=== PATIENT | female | born 2000 | race African-American/Black ===

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

== ENCOUNTER 2019-02-25 21:18 | Emergency (ER) | payer OTHER ==
[~2019-02-25] VITALS: Ht 167.6 cm; Wt 59.7 kg
[2019-02-25 21:21] VITALS: BP 102/58
== END 2019-02-25 22:13 | disposition home or self-care (01) ==
LOC: ED 22:01
DX: L03.90 Cellulitis, unspecified (principal); G43.909 Migraine, unspecified, not intractable, without status migrainosus
CPT/HCPCS: 99283

== ENCOUNTER 2019-10-19 19:42 | Emergency (ER) | payer OTHER ==
[~2019-10-19] VITALS: Ht 167.6 cm; Wt 63.7 kg
[2019-10-19] MEDS ORDERED: ONDANSETRON ODT 4 MG PO ONE (20:00)
[2019-10-19] MEDS ORDERED: ONDANSETRON ODT 4 MG ONE (20:09)
[2019-10-19 20:12] VITALS: BP 109/53
--- NOTE | 2019-10-19 20:13 | NUR ---
Patient presents to ER c/o throat pain, head pain, and "plugged up nostrils" x2 days. Patient has a hx of tonsilitis. Denies fevers or cough. Patient is in NAD. Respirations even and unlabored.
[2019-10-19] MEDS ORDERED: AMOXICILLIN 500 MG CAPSULE ONE (20:43)
[2019-10-19] MEDS ORDERED: AMOXICILLIN 500 MG CAPSULE PO ONE (21:00)
== END 2019-10-19 20:55 | disposition home or self-care (01) ==
LOC: ED 20:30
DX: O26.891 Other specified pregnancy related conditions, first trimester (principal); J02.0 Streptococcal pharyngitis; R11.0 Nausea; Z87.891 Personal history of nicotine dependence; Z3A.01 Less than 8 weeks gestation of pregnancy
CPT/HCPCS: 87081; 87880; 99283; Q0162

== ENCOUNTER 2019-11-21 16:02 | Emergency (ER) | payer MEDICAID ==
[~2019-11-21] VITALS: Ht 167.6 cm; Wt 64.0 kg
--- NOTE | 2019-11-21 16:57 | NUR ---
Pt to room from lobby.
--- NOTE | 2019-11-21 17:03 | NUR ---
PATIENT COMES IN C/O OF PAIN LOWER RIGHT BACK PAIN AND LOWER RIGHT ABDOMINAL PAIN THAT HURTS MORE WHEN SHE TRIES TO URINATE OR HAVE A BM X1 DAY. PATIENT STATES SHE IS 23 WEEKS . PATIENT STATES HER PAIN LEVEL IS A 9/10. PATIENT A&OX4, VITAL SIGNS WITHIN NORMAL LIMITS. URINE SAMPLE COLLECTED AND SENT TO LAB.
[2019-11-21 17:15] LABS: MICROSCOPIC NOT IND
[2019-11-21] MEDS ORDERED: ACETAMINOPHEN 500 MG TABLET PO ONE (17:30)
[2019-11-21 17:35] LABS: BASOPHILS # (AUTO) 0.07 x10^3/uL (0-0.3); BASOPHILS % (AUTO) 1 % (0-1); EOSINOPHILS # (AUTO) 0.09 x10^3/uL (0-0.8); EOSINOPHILS % (AUTO) 1 % (1-7); LYMPHOCYTES # (AUTO) 1.46 x10^3/uL (1-6.1); LYMPHOCYTES % (AUTO) 14 % (22-44); MD NO; MEAN CORPUSCULAR HEMOGLOBIN 31.1 pg (27.0-34.8); MEAN CORPUSCULAR HGB CONC 33.1 g/dL (32.4-35.8); MEAN CORPUSCULAR VOLUME 93.8 fL (80-100); MONOCYTES # (AUTO) 0.38 x10^3/uL (0-1.4); MONOCYTES % (AUTO) 4 % (2-9); NEUTROPHILS # (AUTO) 8.41 x10^3/uL (1.8-8.0); NEUTROPHILS % (AUTO) 81 % (42-75); PLATELET COUNT 166 x10^3/uL (130-400); RED BLOOD COUNT 3.61 x10^6/uL (3.82-5.3)
[2019-11-21 17:48] LABS: ALANINE AMINOTRANSFERASE 17 U/L (12-78); ALBUMIN 2.8 g/dL (3.4-5.0); ANION GAP 5 mmol/L (5-15); CALCIUM 7.7 mg/dL (8.5-10.1); CHLORIDE 111 mmol/L (98-107)
[2019-11-21] MEDS ORDERED: ACETAMINOPHEN 500 MG TABLET ONE (18:01)
[2019-11-21 18:04] LABS: ALKALINE PHOSPHATASE 61 U/L (45-117); BILIRUBIN,TOTAL 0.3 mg/dL (0.2-1.0); TOTAL PROTEIN 6.1 g/dL (6.4-8.2)
--- NOTE | 2019-11-21 18:25 | NUR ---
US TECH IN ROOM.
--- NOTE | 2019-11-21 18:54 | NUR ---
REPORT RECIEVED FROM AGATA FORD.
[2019-11-21 20:20] VITALS: BP 102/35
== END 2019-11-21 21:01 | disposition home or self-care (01) ==
LOC: ED 16:32
DX: O26.892 Other specified pregnancy related conditions, second trimester (principal); R10.2 Pelvic and perineal pain; R11.0 Nausea; G43.909 Migraine, unspecified, not intractable, without status migrainosus; Z3A.24 24 weeks gestation of pregnancy
CPT/HCPCS: 36415; 76770; 76815; 80053; 81003; 84702; 85025; 99285

== ENCOUNTER 2019-12-31 14:47 | Observation (INO) | payer MEDICAID ==
[~2019-12-31] VITALS: Ht 167.6 cm; Wt 64.5 kg
[2019-12-31] MEDS ORDERED: ONDANSETRON 2MG/ML, 2ML IVPush ONE (15:30)
[2019-12-31] MEDS ORDERED: LACTATED RINGERS 1,000 ML IVBOLUS ONE (15:30)
[2019-12-31 15:58] LABS: BASOPHILS # (AUTO) 0.02 x10^3/uL (0-0.3); BASOPHILS % (AUTO) 0 % (0-1); EOSINOPHILS # (AUTO) 0.02 x10^3/uL (0-0.8); EOSINOPHILS % (AUTO) 0 % (1-7); LYMPHOCYTES # (AUTO) 1.14 x10^3/uL (1-6.1); LYMPHOCYTES % (AUTO) 10 % (22-44); MD NO; MEAN CORPUSCULAR HEMOGLOBIN 29.6 pg (27.0-34.8); MEAN CORPUSCULAR HGB CONC 32.9 g/dL (32.4-35.8); MONOCYTES # (AUTO) 0.32 x10^3/uL (0-1.4); MONOCYTES % (AUTO) 3 % (2-9); NEUTROPHILS # (AUTO) 9.67 x10^3/uL (1.8-8.0); NEUTROPHILS % (AUTO) 87 % (42-75); PLATELET COUNT 177 x10^3/uL (130-400); RED BLOOD COUNT 4.08 x10^6/uL (3.82-5.3)
[2019-12-31] MEDS ORDERED: MAALOX/HYOSCYAMINE/LIDOCAINE 45 ML BTL PO ONE (16:00)
[2019-12-31 16:06] LABS: MICROSCOPIC INDICATED
[2019-12-31 16:07] LABS: ALANINE AMINOTRANSFERASE 21 U/L (12-78); ALBUMIN 2.8 g/dL (3.4-5.0); ANION GAP 9 mmol/L (5-15); CALCIUM 8.6 mg/dL (8.5-10.1); CHLORIDE 110 mmol/L (98-107); CREATININE 0.62 mg/dL (0.55-1.02)
[2019-12-31] MEDS ORDERED: ONDANSETRON 2MG/ML, 2ML ONE (16:08)
[2019-12-31 16:10] LABS: ALKALINE PHOSPHATASE 105 U/L (45-117); BILIRUBIN,TOTAL 0.6 mg/dL (0.2-1.0); TOTAL PROTEIN 6.6 g/dL (6.4-8.2)
[2019-12-31 16:10] LABS: AMPHETAMINE SCREEN, URINE Negative (Negative); BARBITURATE SCREEN, URINE Negative (Negative); BENZODIAZEPINE SCREEN, URINE Negative (Negative); CANNABINOID SCREEN, URINE Positive (Negative); METHADONE SCREEN, URINE Negative (Negative)
[2019-12-31 16:15] LABS: COCAINE SCREEN, URINE Negative (Negative); OPIATE SCREEN, URINE Negative (Negative)
[2019-12-31] MEDS ORDERED: D5%-LACTATED RINGERS 1,000 ML IV SCH (16:30)
[2019-12-31 16:35] VITALS: BP 114/74
[2019-12-31] MEDS: LACTATED RINGERS 1,000 ML IV SCH ×2 (17:07→18:17)
[2019-12-31] MEDS ORDERED: ONDA4TAB7 PO (18:29)
[2019-12-31 20:27] LABS: MICROSCOPIC INDICATED
== END 2019-12-31 21:00 | disposition home or self-care (01) ==
LOC: LDOP 14:47 → 2N 18:28 → LDIP 20:00
PROVIDERS: ADMIT Obstetrics & Gynecology; ATTEND Obstetrics & Gynecology
DX: O21.2 Late vomiting of pregnancy (principal); O26.893 Other specified pregnancy related conditions, third trimester; R19.7 Diarrhea, unspecified; O99.323 Drug use complicating pregnancy, third trimester; F12.10 Cannabis abuse, uncomplicated; Z87.440 Personal history of urinary (tract) infections; Z87.891 Personal history of nicotine dependence; Z79.899 Other long term (current) drug therapy; Z3A.30 30 weeks gestation of pregnancy
CPT/HCPCS: 36415; 59025; 80053; 80307; 81001; 85025; 86592; 86762; 86850; 86900; 87086; 87340; 87806; 96361; 96374; G0378; J2405; J7120; J7121; 96360; 96372; G0475

== ENCOUNTER 2020-01-13 11:37 | Emergency (ER) | payer MEDICAID ==
[~2020-01-13] VITALS: Ht 167.6 cm; Wt 66.3 kg
[~2020-01-13 11:37] MED LIST: ONDA4TAB7 PO
[2020-01-13 11:42] VITALS: BP 121/74
== END 2020-01-13 12:32 | disposition home or self-care (01) ==
LOC: ED 12:00
DX: O26.893 Other specified pregnancy related conditions, third trimester (principal); K02.9 Dental caries, unspecified; Z3A.32 32 weeks gestation of pregnancy
CPT/HCPCS: 99283

== ENCOUNTER 2020-12-19 16:34 | Emergency (ER) | payer MEDICAID ==
[~2020-12-19] VITALS: Ht 167.6 cm; Wt 60.6 kg
[2020-12-19 17:07] VITALS: BP 104/46
--- NOTE | 2020-12-19 18:07 | NUR ---
Pt brought back into triage to discuss findings and plan of care with PA.
--- NOTE | 2020-12-19 18:17 | NUR ---
PT DISCHARGED BY FORTINO JACK
== END 2020-12-19 18:19 | disposition home or self-care (01) ==
LOC: ED 18:00
DX: S39.012A Strain of muscle, fascia and tendon of lower back, initial encounter (principal); S29.012A Strain of muscle and tendon of back wall of thorax, initial encounter; V43.52XA Car driver injured in collision with other type car in traffic accident, initial encounter; Y93.I9 Activity, other involving external motion; Y92.410 Unspecified street and highway as the place of occurrence of the external cause; Y99.8 Other external cause status
CPT/HCPCS: 72072; 72110; 99284